=== PATIENT | female | born 1985 | race Caucasian/White ===

== ENCOUNTER 2020-08-25 20:35 | Emergency (ER) | payer MEDICAID ==
[~2020-08-25] VITALS: Ht 162.6 cm; Wt 58.1 kg
[2020-08-25 20:54] VITALS: BP 134/98
[2020-08-25] MEDS ORDERED: KETOROLAC 30 MG/ML VIAL IVP ONE (22:50)
[2020-08-25] MEDS ORDERED: NACL 0.9% 500 ML IV ONE (22:50)
[2020-08-25 23:01] LABS: BASOPHILS % (AUTO) 0.5 % (0.0-2.0); EOSINOPHILS # (AUTO) 0.1 K/uL (0-0.4); EOSINOPHILS % (AUTO) 1.6 % (0.0-4.0); HEMATOCRIT 39.1 % (36-48); HEMOGLOBIN 12.7 g/dL (12.0-16.0); LYMPHOCYTES # (AUTO) 2.3 K/uL (2.5-16.5); LYMPHOCYTES % (AUTO) 35.1 % (20.5-51.1); MEAN CORPUSCULAR HEMOGLOBIN 30 pg (27-31); MEAN CORPUSCULAR HGB CONC 32 g/dL (33-37); MEAN CORPUSCULAR VOLUME 91.8 fL (80-94); MONOCYTES # (AUTO) 0.6 K/uL (0.8-1.0); MONOCYTES % (AUTO) 9.7 % (1.7-9.3); NEUTROPHILS # (AUTO) 3.5 K/uL (1.8-7.7); NEUTROPHILS % (AUTO) 53.1 % (42.2-75.2); PLATELET COUNT (AUTO) 195 K/uL (140-450); RED BLOOD CELL COUNT(AUTO) 4.26 MIL/uL (4.20-5.40); RED CELL DISTRIBUTION WIDTH 14.1 % (11.6-13.7); WHITE BLOOD COUNT (AUTO) 6.6 K/uL (4.8-10.8)
[2020-08-25 23:21] LABS: ALBUMIN 4.4 g/dL (3.4-5.0); ANION GAP 11.9 (8-16); CREATININE 0.7 mg/dL (0.6-1.3); POTASSIUM 3.9 mmol/L (3.5-5.1); TOTAL BILIRUBIN 0.7 mg/dL (0.0-1.0)
[2020-08-25] MEDS ORDERED: KETOROLAC 30 MG/ML VIAL IM ONE (23:45)
[2020-08-26] MEDS ORDERED: HYDR-5080 PO (02:25)
[2020-08-26] MEDS ORDERED: IBUP-2218 PO (02:25)
[2020-08-26 02:37] VITALS: BP 125/78
== END 2020-08-26 02:37 | disposition home or self-care (01) ==
LOC: MED 20:35
DX: S22.31XA Fracture of one rib, right side, initial encounter for closed fracture (principal); V98.8XXA Other specified transport accidents, initial encounter; Y93.89 Activity, other specified; Y92.89 Other specified places as the place of occurrence of the external cause; Y99.8 Other external cause status
CPT/HCPCS: 36415; 71250; 80053; 84703; 85025; 93005; 96372; 99285; J1885; 90715

== ENCOUNTER 2022-11-25 13:28 | Emergency (ER) | payer MEDICAID ==
[~2022-11-25] VITALS: Ht 162.6 cm; Wt 64.9 kg
[~2022-11-25 13:28] MED LIST: HYDR-5080 PO; IBUP-2218 PO
[2022-11-25 13:32] VITALS: BP 111/59; PULSE 77; RESP 16; TEMP 98; O2SAT 99
[2022-11-25 15:25] VITALS: BP 115/57; PULSE 77; RESP 16; TEMP 98; O2SAT 99
== END 2022-11-25 15:26 | disposition home or self-care (01) ==
LOC: MED 13:28
DX: R59.0 Localized enlarged lymph nodes (principal); Z98.890 Other specified postprocedural states; Z79.1 Long term (current) use of non-steroidal anti-inflammatories (NSAID)
CPT/HCPCS: 76536; 99284; Q0092